=== PATIENT | male | born 1995 | race Caucasian/White ===

== ENCOUNTER 2020-08-05 12:35 | Outpatient (CLI) | payer OTHER, BC | END 2020-08-05 12:36 | disposition home or self-care (01) | LOC: SCSRAD 12:35 | PROVIDERS: ATTEND Internal Medicine | DX: M54.6 Pain in thoracic spine (principal) | CPT/HCPCS: 72072 ==

== ENCOUNTER 2022-12-14 13:16 | Outpatient (CLI) | payer BC | END 2022-12-14 13:17 | disposition home or self-care (01) | LOC: ULT 13:16 | PROVIDERS: ATTEND Internal Medicine | DX: N50.811 Right testicular pain (principal); R10.31 Right lower quadrant pain | CPT/HCPCS: 76870; 93976 ==

== ENCOUNTER 2023-06-22 12:45 | Outpatient (CLI) | payer BC | END 2023-06-22 12:46 | disposition home or self-care (01) | LOC: SCSRAD 12:45 | PROVIDERS: ATTEND Internal Medicine | DX: M54.6 Pain in thoracic spine (principal) | CPT/HCPCS: 72072 ==